=== PATIENT | female | born 1980 | race Two or more races ===

== ENCOUNTER 2024-12-28 09:35 | Emergency (ER) | payer MEDICAID ==
[~2024-12-28] VITALS: Ht 165.1 cm; Wt 74.2 kg
[2024-12-28 09:50] VITALS: TEMP 98.6
--- NOTE | 2024-12-28 10:07 | ED.PDOC ---
HPI (NEURO) HPI Comments 44 y/o F, presents to the ED for CC of facial numbness. Patient states, she has been experiencing right sided facial numbness with an associated right sided facial drop onset, Friday (12/26/24). Patient relays, that she recently traveled to [facility] when symptoms started. Patient endorses, being seen by a provider in [facility] and being given a muscle relaxant along with an antibiotic however, symptoms have persisted. Patient reports, new symptoms of headache and right sided arm numbness starting today (12/28/24). Patient denies changes in vision, memory changes, disorientation, fever, chills, or cough. No other symptoms or modifying factors present at this time. Time Seen by MD: 09:55 Reviewed Notes: Nurses Notes, Medications, Allergies Information Source: Patient Mode of Arrival: Ambulatory Severity: Moderate Headache Severity: None Timing: Days Duration: Since onset Prehospital treatment: None Onset: At rest Circumstances: Spontaneous Symptoms: Numbness Modifying factors: Nothing Associated Signs and Symptoms: Numbness Past Medical History PAST MEDICAL HISTORY: Denies Surgical History: Denies all surgeries PRESS SETTER History: Denies all PRESS SETTER Hx Family History Family History: Unknown Social History Smoker: Non-Smoker Alcohol: Denies ETOH Use Drugs: Denies Drug Use Lives In: Home Constitutional: denies: chills, diaphoresis, fatigue, fever, malaise, sweats, weakness, others EENTM: denies: blurred vision, double vision, ear bleeding, ear discharge, ear drainage, ear pain, ear ringing, eye pain, eye redness, hearing loss, mouth pain, mouth swelling, nasal discharge, nose bleeding, nose congestion, nose pain, photophobia, tearing, throat pain, throat swelling, voice changes, others Respiratory: denies: cough, hemoptysis, orthopnea, SOB at rest, shortness of breath, SOB with excertion, stridor, wheezing, others Cardiovascular: denies: chest pain, dizzy spells, diaphoresis, Dyspnea on exer tion, edema, irregular heart beat, left arm pain, lightheadedness, palpitations, PND, syncope, others Gastrointestinal: denies: abdomen distended, abdominal pain, blood streaked bowels, constipated, diarrhea, dysphagia, difficulty swallowing, hematemesis, melena, nausea, poor appetite, poor fluid intake, rectal bleeding, rectal pain, vomiting, others Genitourinary: denies: abnormal vagina bleeding, burning, dyspareunia, dysuria, flank pain, frequency, hematuria, incontinence, pain, , vagina discharge, urgency, others Neurological: reports: right sided numbness; denies: dizziness, fainting, headache, left sided numbness, left sided weakness, numbness, paresthesia, pre- existing deficit, right sided weakness, seizure, speech problems, tingling, tremors, weakness, others Musculoskeletal: denies: back pain, gout, joint pain, joint swelling, muscle pain, muscle stiffness, neck pain, others Integumetry: denies: bruises, change in color, change in hair/nails, dryness, laceration, lesions, lumps, rash, wounds, others Allergic/Immunocompromised: denies: Difficulty Healing, Frequent Infections, Hives, Itching, others Hematologic/Lymphatic: denies: anemia, blood clots, easy bleeding, easy bruising, swollen glands, others Endocrine: denies: excessive hunger, excessive sweating, excessive thirst, excessive urination, flushing, intolerance to cold, intolerance to heat, unexplained weight gain, unexplained weight loss, others Psychiatric: denies: anxiety, bipolar disorder, depression, hopeless, panic disorder, schizophrenia, sleepless, suicidal, others All Other Systems: Reviewed and Negative Physical Exam General Appearance: Moderate Distress HEENT: Normal ENT Inspection, Pharynx Normal, TMs Normal Neck: Full Range of Motion, Non-Tender, Normal, Normal Inspection Respiratory: Chest Non-Tender, Lungs Clear, No Accessory Muscle Use, No Respiratory Distress, Normal Breath Sounds Cardiovascular: No Edema, No JVD, No Murmur, No Gallop, Normal Peripheral Pulses, Regular Rate/Rhythm Breast Exam: Deferred Gastrointestinal: No Organomegaly, Non Tender, No Pulsatile Mass, Normal Bowel Sounds, Soft Genitalia: Deferred Pelvic: Deferred Rectal: Deferred Extremities: No calf tenderness, Normal capillary refill, Normal inspection, Normal range of motion, Non-tender, No pedal edema Musculoskeletal : Apperance: Normal Neurologic: Alert, flow coordinator II-XII nml as Tested, Facial Droop, No Motor Deficits, Normal Affect, Normal Mood, No Sensory Deficits Cerebellar Function: Normal Reflexes: Normal Skin: Dry, Normal Color, Warm Peripheral Pulses: 3+ Radial (R), 3+ Radial (L) Lymphatic: No Adenopathy Was a procedure done? Was a procedure done?: No Differential Diagnosis (SZ) Seizure: Psychogenic Seizure, Closed Head Injury, CVA/TIA, N/A CVA: Jain's Palsy General Weakness: N/A Headache: N/A X-Ray, Labs, Meds, VS Vital Signs Date Time Temp Pulse Resp B/P (MAP) Pulse Ox O2 Delivery O2 Flow Rate FiO2 12/28/24 11:06 83 18 97 Room Air 12/28/24 11:06 83 18 106/63 (77) 97 12/28/24 09:50 98.6 85 18 123/93 (103) 96 98.6 Current Medications Medications (Trade) Dose Ordered Sig/Meir Route Start Time Stop Time Status Last Admin Methylprednisolone Sodium Succinate (Solu Medrol) 125 mg ONCE ONCE IM 12/28/24 10:00 12/28/24 10:01 DC 12/28/24 11:54 [place] [id number] Ph: [phone] DIAGNOSTIC IMAGING Diagnostic Imaging Report : [id number] Signed PATIENT: HEBERT MAJOR SOCORROACCT: [id number] UNIT: [id number] : 1980 LOC: ER ROOM / BED: / AGE / SEX: 44 / F ADM STATUS: REG ER SERVICE [id number] ORDERING PHYSICIAN: BETTY HO MD PROCEDURE(s): HWOCT - HEAD WITHOUT CONTRAST REASON: josiah ORDER NUMBER(s): [id number], ACCESSION NUMBER(s): [id number] EXAM: CT HEAD WITHOUT CONTRAST INDICATION: josiah TECHNIQUE: CT of the head without intravenous contrast. Radiation Dose : 1. Head: CT Dose: CTDI volume is 55.26 mGy. Dose-length product is 978.53 mGy*cm The dose indicators for CT are the volume Computed Tomography (CT) Dose Index (CTDIvol) and the Dose Length Product (DLP), and are measured in units of mGy and mGy-cm, respectively. These indicators are not patient dose, but values generated from the CT scanner acquisition factors. The report includes radiation exposure data for exposures received during this examination. COMPARISON: None FINDINGS: There is no evidence of acute intracranial hemorrhage, extra-axial collection, mass effect, midline shift, herniation or hydrocephalus. The ventricles, sulci and cisterns are age appropriate. The high-white differentiation is intact. Patchy periventricular and subcortical white matter hypoattenuation is nonspecific but may be related to small vessel ischemic disease. The visualized paranasal sinuses and mastoid air cells are clear. The surrounding soft tissues and osseous structures are unremarkable. IMPRESSION: 1. No acute intracranial abnormality. Radiation optimization: All CT scans at this facility use at least one of these dose optimization techniques: automated exposure control mA and/or kV adjustment per patient size (includes targeted exams where dose is matched to clinical indication) or iterative reconstruction. ATED BY: FREDDY WORLEY MD DICTATED DATE/TIME: 12/28/241127 SIGNED BY: FREDDY WORLEY MD SIGNED DATE/TIME: 12/28/241127 CC: Patient alert. Facial droop. Vitals stable. Answering questions. CT scan of the head reviewed does not show any acute changes. Was given steroid. Was given prescription of prednisolone Protonix. Explained to the patient of her condition. Was told to follow up with her primary care physician. Was told to come back if there is any problem. Time of 1ST Reevaluation: 10:25 Reevaluation 1ST: Unchanged Patient Education/Counseling: Diagnosis, Treatment Family Education/Counseling: Diagnosis, Treatment Departure 1 Departure Time of Disposition: 12:33 Impression: Primary Impression: Jain's palsy Disposition: HOME / SELF CARE / HOMELESS Condition: Good e-Prescriptions Prednisone (Prednisone) 10 Mg Tab 10 MG PO DAILY for 5 Days, #5 MG Prov: BETTY HO MD 12/28/24 Pantoprazole Sodium Sesquihydr (Protonix) 40 Mg Tab 40 MG PO DAILY for 20 Days, #20 TAB Prov: BETTY HO MD 12/28/24 Prednisone (Prednisone) 20 Mg Tab 30 MG PO DAILY for 5 Days, #5 MG Prov: BETTY HO MD 12/28/24 Prednisone (Prednisone) 20 Mg Tab 60 MG PO BS for 10 Days, #10 MG Prov: BETTY HO MD 12/28/24 Discharged With: Self Critical Care Note Critical Care Time?: No Stability Stability form required: No Heart Score Heart Score: Heart Score Response (Comments) Value History N/A 0 EKG N/A 0 Age N/A 0 Risk Factors N/A 0 Troponin N/A 0 Total 0 I personally scribed for BETTY HO MD ([email or web address]) on 12/28/24 at 10:07. Electronically submitted by Delmis Kang ([email or web address]). I personally scribed for BETTY HO MD ([email or web address]) on 12/28/24 at 11:50. Electronically submitted by Delmis Kang ([email or web address]). BETTY HO MD Dec 28, 2024 10:07
[2024-12-28 11:06] VITALS: BP 106/63; PULSE 83; RESP 18; O2SAT 97
--- NOTE | 2024-12-28 11:30 | DVH ---
EXAM: CT HEAD WITHOUT CONTRAST INDICATION: bells TECHNIQUE: CT of the head without intravenous contrast. Radiation Dose : 1. Head: CT Dose: CTDI volume is 55.26 mGy. Dose-length product is 978.53 mGy*cm The dose indicators for CT are the volume Computed Tomography (CT) Dose Index (CTDIvol) and the Dose Length Product (DLP), and are measured in units of mGy and mGy-cm, respectively. These indicators are not patient dose, but values generated from the CT scanner acquisition factors. The report includes radiation exposure data for exposures received during this examination. COMPARISON: None FINDINGS: There is no evidence of acute intracranial hemorrhage, extra-axial collection, mass effect, midline s hift, herniation or hydrocephalus. The ventricles, sulci and cisterns are age appropriate. The high-white differentiation is intact. Patchy periventricular and subcortical white matter hypoattenuation is nonspecific but may be related to small vessel ischemic disease. The visualized paranasal sinuses and mastoid air cells are clear. The surrounding soft tissues and osseous structures are unremarkable. IMPRESSION: 1. No acute intracranial abnormality. Radiation optimization: All CT scans at this facility use at least one of these dose optimization hilario hniques: automated exposure control mA and/or kV adjustment per patient size (includes targeted exam s where dose is matched to clinical indication) or iterative reconstruction.
[2024-12-28] MEDS: methylPREDNISolone SOD SUCC 125 MG/2 ML VL IM ONE (11:54)
[2024-12-28] MEDS ORDERED: PRED20TA2 PO ×2 (12:39)
[2024-12-28] MEDS ORDERED: PANT40TA2 PO (12:39)
[2024-12-28] MEDS ORDERED: PRED10TA PO (12:39)
== END 2024-12-28 12:55 | disposition home or self-care (01) ==
LOC: ER 09:35
DX: G51.0 Bell's palsy (principal)
CPT/HCPCS: 70450; 96372; 99285; J2919